=== PATIENT | female | born 1945 | race Caucasian/White ===

== ENCOUNTER → 2017-05-09 | Outpatient (CLI) | payer MEDICARE ==
--- NOTE | 2017-05-09 13:11 | BD ---
EXAMINATION TYPE: MG DEXA axial skeleton. DATE OF EXAM: 05/09/2017 COMPARISON: NONE CLINICAL HISTORY: Z13.820 SCREEN FOR OSTEOPORSIS Height: 5 FT Weight: 171 FRAX RISK QUESTIONS: Alcohol (3 or more units per day): NO Family History (Parent hip fracture): NO Glucocorticoids (More than 3mos): NO (Ex: prednisone, prednisolone, methylprednisolone, dexamethasone, and hydrocortisone). History of Fracture in Adulthood: NO Secondary Osteoporosis: 1. Type 1 Diabetes: NO 2. Hyperthyroidism: NO 3. Menopause before 45: YES 4. Malnutrition: NO 5. Chronic liver disease: NO Rheumatoid Arthritis: NO Current Tobacco Use: NO RISK FACTORS HISTORY OF: Surgery to Spine/Hip(right/left)/Wrist (right/left): CARPAL TUNNEL SURG TO RT WRIST When: 3-4 YEARS AGO Active: YES Postmenopausal woman: SAMIR DE LA PAZ AGE 46 Take estrogen and/or progesterone medications: FROM 46 -51 Lost more than 2 inches in height since high school: YES MEDICATIONS: Additional Medications: NONE Additional History: EXAM MEASUREMENTS: Bone mineral densitometry was performed using the [employer] System. Bone mineral density as measured about the Lumbar spine is: ----- L1-L4(G/cm2): 1.340 T Score Values are as follows: ----- L2: 0.7 ----- L3: 1.7 ----- L4: 2.4 ----- L1-L4: 1.3 BASELINE Bone mineral density about the R hip (g/cm2): 0.909 Bone mineral density about the L hip (g/cm2): 0.966 T Score values are as follows: -----R Neck: -0.9 -----L Neck: -0.5 -----R Total: -0.4 -----L Total: -0.4 BASELINE IMPRESSION: No evidence for osteoporosis or osteopenia. NOTE: T-SCORE=SD OF THE YOUNG ADULT MEAN.
--- NOTE | 2017-05-10 07:16 | MM ---
Reason for exam: screening (asymptomatic). Last mammogram was performed 2 years and 9 months ago. History: Patient is postmenopausal. 3 excisional biopsies of the right breast. Took estrogen for 6 years beginning at age 46. Physical Findings: A clinical breast exam by your physician is recommended on an annual basis and results should be correlated with mammographic findings. MG 3D Screening Mammo W/Cad Bilateral CC and MLO view(s) were taken. Prior study comparison: August 10, 2014, bilateral MG screening mammo w CAD. June 26, 2011, bilateral digital screening mammo w/CAD. The breast tissue is heterogeneously dense. This may lower the sensitivity of mammography. There is no discrete abnormality. No significant changes when compared with prior studies. ASSESSMENT: Negative, BI-RAD 1 RECOMMENDATION: Routine screening mammogram of both breasts in 1 year.
== END | disposition home or self-care (01) ==
LOC: RADMAMWWP 10:03
PROVIDERS: ATTEND Family Medicine
DX: Z12.31 Encounter for screening mammogram for malignant neoplasm of breast (principal); Z13.820 Encounter for screening for osteoporosis
CPT/HCPCS: 77063; 77067; 77080

== ENCOUNTER 2019-04-02 12:57 | Day surgery (SDC) | payer MEDICARE ==
[2019-03-31 14:14] VITALS: BMI 32.2
[~2019-04-02 12:57] MED LIST: DEXAMETHASONE SOD PHOSPHATE 10 MG/ML 1 ML VIAL IV ONE; HYDROmorphone 0.5 MG/0.5 ML SYRINGE IVP PRN; LACTATED RINGERS 1,000 ML IV SCH; LIDOCAINE 1% 20 ML VIAL (10MG/ML) FOR IV START INTRADERMA PRN; MIDAZOLAM 2 MG/2 ML VIAL IV PRN; ONDANSETRON 4 MG/2 ML VIAL IVP ONE; SCOPOLAMINE 1.5MG/72HR PATCH TRANSDERM ONE
[2019-04-02] MEDS ORDERED: PROPOFOL 10 MG/ML 20 ML VIAL IV ONE (14:15)
[2019-04-02] MEDS ORDERED: fentaNYL (PF) 50 MCG/ML 2 ML AMP ONE (14:15)
[2019-04-02] MEDS ORDERED: MIDAZOLAM 2 MG/2 ML VIAL ONE (14:15)
[2019-04-02] MEDS ORDERED: LIDOCAINE 1% INJ 10MG/ML (20 ML MDV) SQ ONE (14:49)
--- NOTE | 2019-04-02 15:25 | P.OP ---
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 Postoperative Diagnosis: Same Procedure(s) Performed: Arthrodesis procedure second toe right foot with pin fixation Anesthesia: MAC Surgeon: Hardik Sotelo Indications for Procedure: Pain with use of enclosed shoe gear and ambulation Operative Findings: Unremarkable Description of Procedure: On the date of surgery the patient was taken to the operating room in good condition placed on the operating table in supine position where an IV was started and adequate IV anesthetic agents were utilized anesthesia was then further supplemented with approximately 8 mL of 1% Xylocaine plain given in a digital block to the second digit of the patient's right foot. The patient's right foot and ankle were then prepped and draped in the usual aseptic manner and over heavy web roll padding an ankle tourniquet was placed above the malleoli of the patient's right ankle patient's right foot and ankle were then elevated and exsanguinated of blood and after approximately 1 minutes. A time the ankle tourniquet was inflated to approximately 250 mmHg At this time attention was directed to the dorsal aspect of the second digit of the right foot where an approximately 2-1/2 cm dorsal linear incision was made the incision was directed overlying the proximal interphalangeal joint it was dissected down through the level of subcutaneous tissue layers all neurovascular structures encountered were identified isolated and were retracted dissection was carried deep down to level of the extensor digitorum longus tendon which was severed transversely at the line of the proximal interphalangeal joint and the ends and of the tendon were underscored and retracted from the underlying bone collateral ligaments on either side of the joint were then incised sharply extensor digitorum longus tendon was then reflected both proximally and distally and utilizing oscillating bone saw the head of the proximal phalanx was resected it a 90 angle to the shaft and removed in total from the surgical site the base of the middle phalanx was then resected and removed from the surgical site throughout the surgical procedure copious amounts sterile saline solution was used to irrigate the surgical site 0.045 K wire was then driven distally into the middle and distal phalanx and then retrograded back into the proximal phalanx holding the digit in a rectus position extensor digitorum longus tendon was then shortened and coaptated and maintained utilizing 3-0 Vicryl simple in terrupted suture small stab incision was a just proximal to the metatarsal phalangeal joint with a #11 blade and the extensor digitorum longus tenotomy was performed skin edges were then coaptated and maintained utilizing 4-0 nylon simple interrupted suture Adaptic Kerlix fluffs four-inch conformer 4 inch Coban was used to form a compression dressing and the ankle tourniquet to the patient's right ankle was deflated adequate hemostatic return was seen in all digits of the right foot specifically the second toe the patient tolerated the surgery and anesthesia well was taken to recovery room.
[2019-04-02 15:47] VITALS: BP 152/76; PULSE 57; RESP 16
== END 2019-04-02 16:38 | disposition home or self-care (01) ==
LOC: OR 12:57
PROVIDERS: ATTEND Podiatrist Foot & Ankle Surgery
DX: M20.41 Other hammer toe(s) (acquired), right foot (principal); M10.9 Gout, unspecified; E78.5 Hyperlipidemia, unspecified; Z88.8 Allergy status to other drugs, medicaments and biological substances; Z88.2 Allergy status to sulfonamides; Z88.1 Allergy status to other antibiotic agents; Z79.82 Long term (current) use of aspirin; Z98.890 Other specified postprocedural states; Z90.710 Acquired absence of both cervix and uterus; Z98.49 Cataract extraction status, unspecified eye; Z82.49 Family history of ischemic heart disease and other diseases of the circulatory system
CPT/HCPCS: 28285; 88304; 88311; J2250; J1100; J0690; J2405; J2001; J3010; J2704

== ENCOUNTER → 2020-09-24 | Outpatient (CLI) | payer MEDICARE ==
--- NOTE | 2020-09-24 10:02 | US ---
EXAMINATION TYPE: US groin LT DATE OF EXAM: 09/24/2020 COMPARISON: NONE CLINICAL HISTORY: S76.012A Strain of muscle of left hip. Patient has left groin pain for over one year. The left groin was scanned. There are no fluid collections or masses seen. Groin vessels are patent. No abnormality noted. IMPRESSION: 1. No sonographic finding at the site of left groin pain. No fluid collection is seen.
== END | disposition home or self-care (01) ==
LOC: RADUSWWP 09:37
PROVIDERS: ATTEND Family Medicine
DX: S76.012A Strain of muscle, fascia and tendon of left hip, initial encounter (principal)

== ENCOUNTER → 2020-10-28 | Outpatient (CLI) | payer MEDICARE ==
--- NOTE | 2020-10-29 14:25 | MM ---
Reason for exam: screening (asymptomatic). Last mammogram was performed 3 years and 6 months ago. History: Patient is postmenopausal. 3 excisional biopsies of the right breast. Took estrogen for 6 years beginning at age 46. Physical Findings: A clinical breast exam by your physician is recommended on an annual basis and results should be correlated with mammographic findings. MG 3D Screening Mammo W/Cad Bilateral CC and MLO view(s) were taken. XCCL view(s) were taken of the left breast. Prior study comparison: May 09, 2017, bilateral MG 3d screening mammo w/cad. August 10, 2014, bilateral MG screening mammo w CAD. The breast tissue is heterogeneously dense. This may lower the sensitivity of mammography. Stable benign calcifications. There is no discrete abnormality. No significant changes when compared with prior studies. ASSESSMENT: Benign, BI-RAD 2 RECOMMENDATION: Routine screening mammogram of both breasts in 1 year.
== END | disposition home or self-care (01) ==
LOC: RADMAMWWP 10:07
PROVIDERS: ATTEND Family Medicine
DX: Z12.31 Encounter for screening mammogram for malignant neoplasm of breast (principal)
CPT/HCPCS: 77063; 77067

== ENCOUNTER → 2023-01-08 | Outpatient (CLI) | payer MEDICARE ==
--- NOTE | 2023-01-09 09:48 | MM ---
Reason for Exam: Screening (asymptomatic). Last mammogram was performed 2 year(s) and 2 month(s) ago. Patient History: Menarche at age 12. First Full-Term at age 24. Left ovary removed at age 46. Right ovary removed at age 46. Hysterectomy at age 46. Postmenopausal. Estrogen for 6 years from age 46 until age 52. Excisional Biopsy on the Right side. Excisional Biopsy on the Right side. Excisional Biopsy on the Right side. Risk Values: Monika 5 year model risk: 2.6%. NCI Lifetime model risk: 5.6%. Prior Study Comparison: 06/26/2011 Bilateral Screening Mammogram, [facility]. 08/10/2014 Bilateral Screening Mammogram, [facility]. 05/09/2017 Bilateral Screening Mammogram, [facility]. 10/28/2020 Bilateral Screening Mammogram, [facility]. Tissue Density: The breast tissue is heterogeneously dense. This may lower the sensitivity of mammography. Findings: Analyzed By CAD. There is no suspicious group of microcalcifications or new suspicious mass in either breast. Overall Assessment: Benign, BI-RAD 2 Management: Screening Mammogram of both breasts in 1 year. . Patient should continue monthly self-breast exams. A clinical breast exam by your physician is recommended on an annual basis. This exam should not preclude additional follow-up of suspicious palpable abnormalities. Note on Monika scores and lifetime risk: 1. A Monika score greater than 3% is considered moderate risk. If this is the case, consider specialist referral to assess eligibility for a risk reducing agent. 2. If overall lifetime risk for the development of breast cancer is 20% or higher, the patient may qualify for future screening with alternating mammogram and breast MRI. Electronically signed and approved by: Mina Ortiz M.D. Radiologis
== END | disposition home or self-care (01) ==
LOC: RADMAMWWP 08:06
PROVIDERS: ATTEND Family Medicine
DX: Z12.31 Encounter for screening mammogram for malignant neoplasm of breast (principal); Z78.0 Asymptomatic menopausal state
CPT/HCPCS: 77063; 77067

== ENCOUNTER → 2024-11-26 | Outpatient (CLI) | payer MEDICARE ==
--- NOTE | 2024-11-26 14:43 | MM ---
Reason for Exam: Screening (asymptomatic). Last mammogram was performed 1 year(s) and 10 month(s) ago. Patient History: Menarche at age 12. First Full-Term at age 24. Left ovary removed at age 46. Right ovary removed at age 46. Hysterectomy at age 46. Postmenopausal. Estrogen for 6 years from age 46 until age 52. Excisional Biopsy on the Right side. Excisional Biopsy on the Right side. Excisional Biopsy on the Right side. Risk Values: Monika 5 year model risk: 2.6%. NCI Lifetime model risk: 4.9%. Prior Study Comparison: 05/09/2017 Bilateral Screening Mammogram, [facility]. 10/28/2020 Bilateral Screening Mammogram, [facility]. 01/08/2023 Bilateral MG 3D screening mammo w/cad, [facility]. Tissue Density: There are scattered areas of fibroglandular density. Findings: Analyzed By CAD. Post excisional changes on the right. Metal clip projecting in the right axillary tail. A cutaneous lesion/mole posterior medial left breast redemonstrated. Bilateral areas of asymmetric density remain unchanged. There is no suspicious group of microcalcifications or new suspicious mass in either breast. Overall Assessment: Benign, BI-RAD 2 Management: Screening Mammogram of both breasts in 1 year. Patient should continue monthly self-breast exams. A clinical breast exam by your physician is recommended on an annual basis. This exam should not preclude additional follow-up of suspicious palpable abnormalities. Note on Monika scores and lifetime risk: 1. A Monika score greater than 3% is considered moderate risk. If this is the case, consider specialist referral to assess eligibility for a risk reducing agent. 2. If overall lifetime risk for the development of breast cancer is 20% or higher, the patient may qualify for future screening with alternating mammogram and breast MRI. [facility], , 11/26/2024 2:40 PM. Electronically signed and approved by: Edilia Lynne M.D. Radiologist
== END | disposition home or self-care (01) ==
LOC: RADMAMWWP 08:35
PROVIDERS: ATTEND Family Medicine
DX: Z12.31 Encounter for screening mammogram for malignant neoplasm of breast (principal); R92.323 Mammographic fibroglandular density, bilateral breasts; Z78.0 Asymptomatic menopausal state
CPT/HCPCS: 77063; 77067